=== PATIENT | male | born 1970 | race Caucasian/White ===

== ENCOUNTER 2017-12-17 13:54 | Emergency (ER) | payer SELFPAY ==
[~2017-12-17] VITALS: Ht 200.7 cm; Wt 93.2 kg
[~2017-12-17 13:54] MED LIST: DILANTIN100 MG PO; NORCO 325 MG-51 TAB PO
[2017-12-17] MEDS ORDERED: LEVETIRACETAM500 M2 PO (14:10)
[2017-12-17 14:30] LABS: HEMATOCRIT 45.7 % (42.0-52.0); MEAN CELL VOLUME 98 fl (78-100); MEAN CORPUSCULAR HEMOGLOBIN 34 pg (27-31); MEAN CORPUSCULAR HGB CONC 35 g/dL (33-37); MEAN PLATELET VOLUME 10.4 fl (7.4-10.4); PLATELET COUNT 169 K/mm3 (130-400); RED BLOOD COUNT 4.65 M/mm3 (4.20-5.60); WHITE BLOOD COUNT 14.7 K/mm3 (4.8-10.8)
[2017-12-17 14:41] LABS: BAND 8 % (0-10); LYMPHOCYTE 9 % (20-51); MONOCYTE 7 % (3-10); NEUTROPHILS 76 % (42-75)
[2017-12-17 14:43] LABS: ALBUMIN 3.6 g/dL (3.5-5.0); CALCIUM 9.2 mg/dL (8.4-10.2); POTASSIUM 3.3 mmol/L (3.6-5.0); TOTAL PROTEIN 7.1 g/dL (6.3-8.2)
[2017-12-17] MEDS ORDERED: ZITHROMAX Z PA250 MG PO (16:00)
[2017-12-17] MEDS ORDERED: PROMETHAZINE12.5 M5 PO (16:00)
[2017-12-17] MEDS ORDERED: PREDNISONE10 MG PO (16:04)
[2017-12-17] MEDS ORDERED: ALBUTEROL2.5 MG/3 M IH (16:29)
[2017-12-17 16:41] LABS: URINE APPEARANCE CLEAR; URINE BILIRUBIN NEGATIVE (NEGATIVE); URINE BLOOD NEGATIVE (NEGATIVE); URINE COLOR YELLOW; URINE GLUCOSE NEGATIVE (NEGATIVE); URINE KETONE NEGATIVE (NEGATIVE); URINE LEUKOCYTE ESTERASE NEGATIVE (NEGATIVE); URINE NITRATE NEGATIVE (NEGATIVE); URINE PROTEIN(semi-quant) TRACE mg/dL (NEGATIVE); URINE UROBILINOGEN NORMAL (NORMAL); URINE WBC 0-1 /hpf (0-3)
[2017-12-17 17:07] VITALS: BP 116/62
== END 2017-12-17 17:07 | disposition home or self-care (01) ==
LOC: ED 13:54
PROVIDERS: Nurse Practitioner
DX: J18.9 Pneumonia, unspecified organism (principal); A08.4 Viral intestinal infection, unspecified; F17.210 Nicotine dependence, cigarettes, uncomplicated; Z79.899 Other long term (current) drug therapy
CPT/HCPCS: J0696; J2405; J2550; J7030; J7512

== ENCOUNTER → 2018-02-16 | Outpatient (CLI) | payer SELFPAY ==
[~2018-02-16] MED LIST changes: +ALBUTEROL2.5 MG/3 M IH; +LEVETIRACETAM500 M2 PO; +PREDNISONE10 MG PO; +PROMETHAZINE12.5 M5 PO; +ZITHROMAX Z PA250 MG PO
== END ==
LOC: LAB 13:24
DX: Z51.81 Encounter for therapeutic drug level monitoring (principal); Z79.899 Other long term (current) drug therapy